=== PATIENT | female | born 1945 | race Caucasian/White ===

== ENCOUNTER 2016-08-26 03:41 | Inpatient (IN) | payer MEDICARE, OTHER ==
[2016-08-26 04:21] LABS: BASOPHIL 0.3 % (0-2); EOSINOPHIL 2.2 % (0-7); HCT 41.5 % (37.0-47.0); HGB 13.8 g/dl (12.5-16.0); MCH 32.2 pg (25.0-31.0); MCHC 33.3 g/dL (32.0-36.0); MONOCYTE 7.4 % (0-12); MPV 10.5 fL (6.0-9.5); NEUTROPHIL 52.1 % (41-80); PLT 269 K/uL (150-400); RBC 4.28 M/uL (4.20-5.40); RDW 13.3 % (11.5-14.0); WBC 11.6 K/uL (4.0-10.5)
[2016-08-26 04:31] LABS: INR 0.99 (0.9-1.2); PROTHROMBIN TIME 12.7 SECONDS (11.7-14.0); PTT 25.4 SECONDS (23.2-31.4)
[2016-08-26 04:41] LABS: CREATININE 0.9 mg/dL (0.5-1.0); POTASSIUM 4.7 mmol/L (3.5-5.1)
[2016-08-26 17:10] LABS: HCT 40.5 % (37.0-47.0); HGB 13.4 g/dl (12.5-16.0); MCHC 33.1 g/dL (32.0-36.0); MCV 96.7 fL (78.0-100.0); MPV 10.4 fL (6.0-9.5); RBC 4.19 M/uL (4.20-5.40); RDW 13.4 % (11.5-14.0); WBC 11.3 K/uL (4.0-10.5)
[2016-08-26 17:20] LABS: INR 1.06 (0.9-1.2); PROTHROMBIN TIME 13.4 SECONDS (11.7-14.0); PTT 26.9 SECONDS (23.2-31.4)
[2016-08-26 17:27] LABS: ALBUMIN 3.6 g/dL (3.4-4.8); BILIRUBIN - TOTAL 0.4 mg/dL (0.1-1.0); CREATININE 0.8 mg/dL (0.5-1.0); GLOBULIN (CALCULATION) 3.1 g/dL (2.2-4.2); TOTAL PROTEIN 6.7 g/dL (6.4-8.3)
[2016-08-27 00:25] LABS: BILIRUBIN NEGATIVE (NEGATIVE); BLOOD 2+ Ery/uL (NEGATIVE); CLARITY HAZY (CLEAR); COLOR YELLOW (YELLOW); GLUCOSE (U) 3+ mg/dL (NORMAL); KETONE (U) NEGATIVE (NEGATIVE); LEUKOCYTES 1+ Leu/uL (NEGATIVE); NITRITE POSITIVE (NEGATIVE); PROTEIN TRACE (LOW) mg/dL (NEGATIVE); SPECIFIC GRAVITY 1.025 (1.001-1.030); UROBILINOGEN 0.2 mg/dL (0.2-1.0)
[2016-08-27 04:36] LABS: HCT 40.1 % (37.0-47.0); HGB 13.4 g/dl (12.5-16.0); MCH 32.6 pg (25.0-31.0); MCHC 33.4 g/dL (32.0-36.0); MCV 97.6 fL (78.0-100.0); MPV 10.5 fL (6.0-9.5); RBC 4.11 M/uL (4.20-5.40); RDW 13.6 % (11.5-14.0); WBC 11.7 K/uL (4.0-10.5)
[2016-08-27 04:52] LABS: ALBUMIN 3.9 g/dL (3.4-4.8); BILIRUBIN - TOTAL 0.6 mg/dL (0.1-1.0); CREATININE 0.8 mg/dL (0.5-1.0); GLOBULIN (CALCULATION) 2.8 g/dL (2.2-4.2); POTASSIUM 4.9 mmol/L (3.5-5.1); TOTAL PROTEIN 6.7 g/dL (6.4-8.3)
[2016-08-28 04:40] LABS: HCT 39.6 % (37.0-47.0); MCH 32.4 pg (25.0-31.0); MCHC 32.8 g/dL (32.0-36.0); MCV 98.8 fL (78.0-100.0); MPV 10.2 fL (6.0-9.5); RBC 4.01 M/uL (4.20-5.40); RDW 13.8 % (11.5-14.0)
[2016-08-28 05:00] LABS: CREATININE 0.7 mg/dL (0.5-1.0); POTASSIUM 4.6 mmol/L (3.5-5.1)
[2016-08-29 04:50] LABS: HCT 33.9 % (37.0-47.0); HGB 10.9 g/dl (12.5-16.0); MCH 31.9 pg (25.0-31.0); MCHC 32.2 g/dL (32.0-36.0); MCV 99.1 fL (78.0-100.0); MPV 9.7 fL (6.0-9.5); RBC 3.42 M/uL (4.20-5.40); RDW 13.6 % (11.5-14.0); WBC 14.2 K/uL (4.0-10.5)
[2016-08-29 05:13] LABS: CREATININE 0.8 mg/dL (0.5-1.0); POTASSIUM 4.6 mmol/L (3.5-5.1)
[2016-08-30 05:43] LABS: HCT 28.7 % (37.0-47.0); HGB 9.3 g/dl (12.5-16.0); MCH 31.8 pg (25.0-31.0); MCHC 32.4 g/dL (32.0-36.0); MCV 98.3 fL (78.0-100.0); MPV 10.9 fL (6.0-9.5); RBC 2.92 M/uL (4.20-5.40); RDW 13.4 % (11.5-14.0); WBC 13.7 K/uL (4.0-10.5)
== END 2016-08-30 14:16 | DRG 481 ==
LOC: FER 03:41 → FMS 16:17
PROVIDERS: Emergency Medicine Emergency Medical Services; Internal Medicine; Orthopaedic Surgery; ADMIT Specialist
PROC: 0QS704Z Reposition Left Upper Femur with Internal Fixation Device, Open Approach (ICD-10-PCS; principal; 2016-08-27)
DX: S72.142A Displaced intertrochanteric fracture of left femur, initial encounter for closed fracture (principal); Z68.41 Body mass index [BMI] 40.0-44.9, adult; F03.90 Unspecified dementia, unspecified severity, without behavioral disturbance, psychotic disturbance, mood disturbance, and anxiety; E11.65 Type 2 diabetes mellitus with hyperglycemia; Z91.81 History of falling; W01.0XXA Fall on same level from slipping, tripping and stumbling without subsequent striking against object, initial encounter; Y93.89 Activity, other specified; Y92.122 Bedroom in nursing home as the place of occurrence of the external cause; E66.01 Morbid (severe) obesity due to excess calories; F31.9 Bipolar disorder, unspecified; E03.9 Hypothyroidism, unspecified; I25.10 Atherosclerotic heart disease of native coronary artery without angina pectoris; E78.5 Hyperlipidemia, unspecified; G40.909 Epilepsy, unspecified, not intractable, without status epilepticus; Z88.0 Allergy status to penicillin; Z79.82 Long term (current) use of aspirin; R09.02 Hypoxemia; I10 Essential (primary) hypertension; Z79.01 Long term (current) use of anticoagulants; K21.9 Gastro-esophageal reflux disease without esophagitis; G47.33 Obstructive sleep apnea (adult) (pediatric)
CPT/HCPCS: 36415; 36600; 70450; 71010; 72125; 72128; 72131; 72170; 72192; 73501; 73552; 76000; 80048; 80053; 81003; 82803; 82962; 85025; 85610; 85730; 86850; 86900; 86901; 87076; 87088; 87186; 93005; 94010; 94667; 94668; 94760; 94762; 97163; 97167; 97530; 97530-GP; 97535; C1713; J1170; J1815; J1956; J2270; J2405; J2704; J3010

== ENCOUNTER 2021-02-01 11:46 | Inpatient (IN) | payer MEDICARE, OTHER ==
[~2021-02-01] VITALS: Ht 160 cm; Wt 108.0 kg
[~2021-02-01 11:46] MED LIST: AQUAPHOR396 GM TOP; BAYER CHEWABLE81 MG PO; BAZA PROTECT CR57 GM TOP; CEFDINIR300 MG PO; DEPAKOTE250 MG PO; DOCUSATE S50 MG/5 ML PO; GLUCAGEN1 MG SC; GLUTOSE PO; ISOSORBIDE MONO30 MG PO; JANUVIA100 MG PO; LACTINEX1 EACH PO; LEVAQUIN500 MG PO; LEVEMIR FL100 UNIT/1 SC; LIPITOR20 MG PO; LOVAZA1 GM PO; MELATONIN3 MG PO; METOPROLOL SUCC25 MG PO; METRONIDAZOLE500 MG PO; MILK OF MA400 MG/5 M PO; MIRALAX17 GM PO; NEURONTIN100 MG PO; NORCO 5-325 TA1 EACH PO; NOVOLOG FL100 UNIT/1 SC; SYNTHROID150 MC1 PO; TRAZODONE 50MG50 MG PO; VENLAFAXINE HC150 MG PO; WELLBUTRIN XL300 MG PO
[2021-02-01 12:32] LABS: BASOPHIL 0.5 % (0-2); EOSINOPHIL 0.8 % (0-7); HCT 48.7 % (37.0-47.0); HGB 14.4 g/dl (12.5-16.0); LYMPHOCYTE 33.7 % (15-48); MCH 31.4 pg (25.0-31.0); MCHC 29.6 g/dL (32.0-36.0); MCV 106.3 fL (78.0-100.0); MONOCYTE 9.5 % (0-12); MPV 11.6 fL (6.0-9.5); NEUTROPHIL 54.4 % (41-80); NRBC 0; PLT 198 K/uL (150-400); RBC 4.58 M/uL (4.20-5.40); RDW 13.6 % (11.5-14.0)
[2021-02-01 12:33] LABS: BILIRUBIN 1+ mg/dL (NEGATIVE); BLOOD 3+ Ery/uL (NEGATIVE); CLARITY CLOUDY (CLEAR); COLOR YELLOW (YELLOW); GLUCOSE (U) NORMAL (NORMAL); LEUKOCYTES 2+ Leu/uL (NEGATIVE); NITRITE POSITIVE (NEGATIVE); PROTEIN 1+ mg/dL (NEGATIVE); SPECIFIC GRAVITY >=1.030 (1.001-1.030); pH 5.5 (5.0-9.0)
[2021-02-01 12:44] LABS: BACTERIA 3+; URINARY WBC 20-50
[2021-02-01 12:45] LABS: WBC 17.1 K/uL (4.0-10.5)
[2021-02-01 13:21] LABS: LACTIC ACID 1.8 mmol/L (0.4-1.9)
[2021-02-01 13:25] LABS: ALBUMIN 2.8 g/dL (3.4-5.0); BILIRUBIN - TOTAL 0.6 mg/dL (0.2-1.0); BUN/CREAT RATIO (CALC) 37.5 RATIO; CREATININE 1.12 mg/dL (0.51-0.95); GLOBULIN (CALCULATION) 4.6 g/dL; POTASSIUM 4.5 mmol/L (3.5-5.1); TOTAL PROTEIN 7.4 g/dL (6.4-8.2)
[2021-02-01] MEDS ORDERED: NEURONTIN300 MG PO (18:19)
[2021-02-01] MEDS ORDERED: NORCO 5-325 TA1 EACH PO (18:21)
[2021-02-01] MEDS ORDERED: ATIVAN0.5 MG PO (18:40)
[2021-02-01] MEDS ORDERED: DEPAKOTE125 MG PO (18:43)
[2021-02-01] MEDS ORDERED: DEPAKOTE SPRIN125 M2 PO (18:46)
[2021-02-01] MEDS ORDERED: COLACE100 MG PO (18:46)
[2021-02-01] MEDS ORDERED: LANTUS **100 UNITS/ SC (18:48)
[2021-02-01] MEDS ORDERED: SYNTHROID100 MCG PO (18:50)
[2021-02-01] MEDS ORDERED: NUEDEXTA 20-101 EACH PO (18:52)
[2021-02-02 06:11] LABS: BASOPHIL 0.7 % (0-2); EOSINOPHIL 1.5 % (0-7); HCT 42.1 % (37.0-47.0); HGB 12.7 g/dl (12.5-16.0); LYMPHOCYTE 29.4 % (15-48); MCH 32.2 pg (25.0-31.0); MCHC 30.2 g/dL (32.0-36.0); MCV 106.9 fL (78.0-100.0); MONOCYTE 8.5 % (0-12); MPV 11.7 fL (6.0-9.5); NEUTROPHIL 58.7 % (41-80); NRBC 0; PLT 171 K/uL (150-400); RBC 3.94 M/uL (4.20-5.40); RDW 13.4 % (11.5-14.0); WBC 13.4 K/uL (4.0-10.5)
[2021-02-02 06:31] LABS: ALBUMIN 2.4 g/dL (3.4-5.0); BILIRUBIN - TOTAL 0.7 mg/dL (0.2-1.0); BUN/CREAT RATIO (CALC) 37.9 RATIO; CREATININE 0.95 mg/dL (0.51-0.95); MAGNESIUM 2.4 mg/dL (1.8-2.4); PHOSPHORUS 1.7 mg/dL (2.6-4.7); POTASSIUM 3.8 mmol/L (3.5-5.1); TOTAL PROTEIN 6.4 g/dL (6.4-8.2)
--- NOTE | 2021-02-02 13:08 | NUR ---
02/02/21 [facility] will accept patient back per [employer]. A new COVID test will be required after 72 hours of admission. jessica Yonathan, guardian, is agreement with return to [facility]. Ms. Cardona was provided with the telephone # to the [facility] r/t concerns of privacy.
[2021-02-03 05:51] LABS: BASOPHIL 0.4 % (0-2); HCT 40.5 % (37.0-47.0); HGB 12.3 g/dl (12.5-16.0); MCH 31.9 pg (25.0-31.0); MCHC 30.4 g/dL (32.0-36.0); MCV 104.9 fL (78.0-100.0); MONOCYTE 7.2 % (0-12); MPV 11.7 fL (6.0-9.5); NEUTROPHIL 54.3 % (41-80); NRBC 0; PLT 159 K/uL (150-400); RBC 3.86 M/uL (4.20-5.40); RDW 13.1 % (11.5-14.0); WBC 13.4 K/uL (4.0-10.5)
[2021-02-03 06:28] LABS: BUN/CREAT RATIO (CALC) 23.5 RATIO; CREATININE 0.85 mg/dL (0.51-0.95); MAGNESIUM 2.1 mg/dL (1.8-2.4); PHOSPHORUS 2.1 mg/dL (2.6-4.7); POTASSIUM 3.7 mmol/L (3.5-5.1)
[2021-02-04 06:16] LABS: BUN/CREAT RATIO (CALC) 17.3 RATIO; CREATININE 0.81 mg/dL (0.51-0.95); PHOSPHORUS 2.2 mg/dL (2.6-4.7)
[2021-02-04 06:20] LABS: BASOPHIL 0.6 % (0-2); EOSINOPHIL 4.9 % (0-7); HCT 40.7 % (37.0-47.0); HGB 12.6 g/dl (12.5-16.0); LYMPHOCYTE 40.6 % (15-48); MCH 32.1 pg (25.0-31.0); MCV 103.6 fL (78.0-100.0); MONOCYTE 7.2 % (0-12); MPV 12.1 fL (6.0-9.5); NEUTROPHIL 45.1 % (41-80); NRBC 0; PLT 176 K/uL (150-400); RBC 3.93 M/uL (4.20-5.40)
--- NOTE | 2021-02-04 15:44 | NUR ---
02/04/21 Dr. Patel requested a report re: patient's baseline. Kerry Barnes, reported: patient is total care, she yells, sits with her eyes closes, and feeds herself at times. This information was relayed to Dr. Patel.
--- NOTE | 2021-02-04 16:53 | NUR ---
WOUND CONSULT DONE AT 1545. PATIENT HAS 3 OPEN AREAS TO COCCYX. AREAS MEASURE 0.5X 0.5 X 0.1, 0.3 X0.4 X 0.1, AND 0.4 X 0.4 X 0.1. PATIENT IS INCOMTINENT OF B AND B. AREAS APPEAR TO BE CAUSED BY MOISTURE. MASD AREA'S HAVE NO DRAINAGE AND NO ODOR. PATIENT DOES NOT RESPOND WHILE CLEANSING AREA, TO ANY PAIN. RECOMMENT SILVASORB GEL BID, KEEP SKIN CLEAN AND DRY, AND TO TURN AND REPOSITION PT EVERY 2 HOURS. WILL DISCUSS RECOMMENDATIONS WITH DR. ESQUEDA.
[2021-02-05 06:20] LABS: BASOPHIL 0.4 % (0-2); EOSINOPHIL 2.4 % (0-7); HCT 37.9 % (37.0-47.0); HGB 11.8 g/dl (12.5-16.0); LYMPHOCYTE 40.2 % (15-48); MCHC 31.1 g/dL (32.0-36.0); MCV 102.7 fL (78.0-100.0); MONOCYTE 8.8 % (0-12); MPV 11.6 fL (6.0-9.5); NEUTROPHIL 46.2 % (41-80); NRBC 0; PLT 176 K/uL (150-400); RBC 3.69 M/uL (4.20-5.40)
[2021-02-05 06:50] LABS: BUN/CREAT RATIO (CALC) 14.3 RATIO; CREATININE 0.77 mg/dL (0.51-0.95); PHOSPHORUS 2.9 mg/dL (2.6-4.7); POTASSIUM 4.2 mmol/L (3.5-5.1)
[2021-02-05 12:11] LABS: CALCIUM, SERUM 11.2 mg/dL (8.7-10.3); PTH, INTACT 77 pg/mL (15-65)
[2021-02-06 06:22] LABS: BASOPHIL 0.5 % (0-2); EOSINOPHIL 2.4 % (0-7); HCT 35.9 % (37.0-47.0); HGB 11.2 g/dl (12.5-16.0); LYMPHOCYTE 42.1 % (15-48); MCH 31.8 pg (25.0-31.0); MCHC 31.2 g/dL (32.0-36.0); MONOCYTE 9.6 % (0-12); MPV 11.5 fL (6.0-9.5); NRBC 0; PLT 163 K/uL (150-400); RBC 3.52 M/uL (4.20-5.40); RDW 13.2 % (11.5-14.0)
[2021-02-06 07:09] LABS: BUN/CREAT RATIO (CALC) 14.3 RATIO; CREATININE 0.77 mg/dL (0.51-0.95); MAGNESIUM 1.8 mg/dL (1.8-2.4); PHOSPHORUS 2.5 mg/dL (2.6-4.7); POTASSIUM 4.1 mmol/L (3.5-5.1)
[2021-02-06 07:52] LABS: TOTAL CELL COUNT 100
[2021-02-06 07:56] LABS: BLAST 1; EOSINOPHIL(M) 4 % (0-7); LYMPHOCYTE(M) 38 % (15-48); MONOCYTE(M) 5 % (0-12); NEUTROPHILS(M) 51 % (41-80); PROMYELOCYTE 1
[2021-02-06 07:57] LABS: PLATELET ESTIMATE NORMAL; PLATELET MORPHOLOGY NORMAL
[2021-02-06] MEDS ORDERED: VITAMIN D32400 UNIT/ PO (10:22)
--- NOTE | 2021-02-06 16:34 | NUR ---
PATIENT HAS BEEN GIVEN MIRALAX, DULCOLAX SUPP AND WHEN GIVEN NO IMPACTION FELT, INFORMED ORDERED LACTULOSE, CALL TO [facility] AND SPOKE WITH CAREGIVER THERE IF [facility] WAS NEGATIVE FOR IMPACTION PATIENT NOT EATING MUCH WOULD THEY TAKE HER BACK AND WAS INFORMED THAT PER ANNELIESE BERGER RN THAT REGARDLESS OF WHAT THE KUB SAYS SHE HAS TO HAVE A BM BEFORE SHE CAN BE SENT BACK.
== END 2021-02-06 19:30 | DRG 871 ==
LOC: FER 11:46 → FMS 14:58
PROVIDERS: Emergency Medicine; Internal Medicine; Nurse Practitioner; ADMIT Internal Medicine
DX: A41.51 Sepsis due to Escherichia coli [E. coli] (principal); G93.41 Metabolic encephalopathy; N17.9 Acute kidney failure, unspecified; N30.01 Acute cystitis with hematuria; E87.0 Hyperosmolality and hypernatremia; Z20.822 Contact with and (suspected) exposure to COVID-19; R65.20 Severe sepsis without septic shock; E11.9 Type 2 diabetes mellitus without complications; L89.152 Pressure ulcer of sacral region, stage 2; L89.626 Pressure-induced deep tissue damage of left heel; E86.0 Dehydration; E21.0 Primary hyperparathyroidism; F03.90 Unspecified dementia, unspecified severity, without behavioral disturbance, psychotic disturbance, mood disturbance, and anxiety; E66.01 Morbid (severe) obesity due to excess calories; E11.51 Type 2 diabetes mellitus with diabetic peripheral angiopathy without gangrene; G40.909 Epilepsy, unspecified, not intractable, without status epilepticus; F20.9 Schizophrenia, unspecified; I25.10 Atherosclerotic heart disease of native coronary artery without angina pectoris; I10 Essential (primary) hypertension; F32.9 Major depressive disorder, single episode, unspecified; Z90.49 Acquired absence of other specified parts of digestive tract; Z90.710 Acquired absence of both cervix and uterus; Z88.0 Allergy status to penicillin; Z90.89 Acquired absence of other organs; Z91.81 History of falling; Z79.4 Long term (current) use of insulin; Z79.82 Long term (current) use of aspirin; Z79.890 Hormone replacement therapy; Z79.899 Other long term (current) drug therapy
CPT/HCPCS: 36415; 36600; 71045; 80048; 80053; 81001; 82306; 82310; 82803; 82962; 83605; 83735; 83880; 83970; 84100; 84145; 84439; 84443; 85025; 86140; 87040; 87076; 87088; 87186; 94760; 94762; C9113; J0696; J1650; J3480; J7040; J7070; U0002

== ENCOUNTER 2021-02-08 13:15 | Inpatient (IN) | payer MEDICARE, OTHER ==
[~2021-02-08] VITALS: Ht 160 cm; Wt 115.2 kg
[~2021-02-08 13:15] MED LIST changes: +ATIVAN0.5 MG PO; +COLACE100 MG PO; +DEPAKOTE SPRIN125 M2 PO; +DEPAKOTE125 MG PO; +LANTUS **100 UNITS/ SC; +NEURONTIN300 MG PO; +NUEDEXTA 20-101 EACH PO; +SYNTHROID100 MCG PO; +VITAMIN D32400 UNIT/ PO
[2021-02-08 15:42] LABS: BASOPHIL 0.5 % (0-2); EOSINOPHIL 0.6 % (0-7); HCT 40.9 % (37.0-47.0); HGB 12.7 g/dl (12.5-16.0); LYMPHOCYTE 29.1 % (15-48); MCH 31.8 pg (25.0-31.0); MCHC 31.1 g/dL (32.0-36.0); MCV 102.3 fL (78.0-100.0); MONOCYTE 7.9 % (0-12); MPV 12.9 fL (6.0-9.5); NEUTROPHIL 59.9 % (41-80); NRBC 0; PLT 214 K/uL (150-400); RDW 13.6 % (11.5-14.0)
[2021-02-08 15:54] LABS: BILIRUBIN 1+ mg/dL (NEGATIVE); BLOOD 3+ Ery/uL (NEGATIVE); CLARITY TURBID (CLEAR); COLOR YELLOW (YELLOW); GLUCOSE (U) NORMAL (NORMAL); LEUKOCYTES 1+ Leu/uL (NEGATIVE); NITRITE NEGATIVE (NEGATIVE); PROTEIN 2+ mg/dL (NEGATIVE); SPECIFIC GRAVITY >=1.030 (1.001-1.030); pH 5.5 (5.0-9.0)
[2021-02-08 15:57] LABS: ALBUMIN 2.4 g/dL (3.4-5.0); BILIRUBIN - TOTAL 0.5 mg/dL (0.2-1.0); BUN/CREAT RATIO (CALC) 15.4 RATIO; CREATININE 0.78 mg/dL (0.51-0.95); GLOBULIN (CALCULATION) 4.7 g/dL; POTASSIUM 4.1 mmol/L (3.5-5.1); TOTAL PROTEIN 7.1 g/dL (6.4-8.2)
[2021-02-08 16:01] LABS: PRO-BNP 399 pg/mL (<125)
[2021-02-08 16:03] LABS: URINARY WBC TNTC
[2021-02-08 16:04] LABS: BACTERIA 2+
[2021-02-08 16:32] LABS: CORONAVIRUS 2019 SARS-COV-2 NEGATIVE (NEGATIVE); INFLUENZA A NAA NEGATIVE (NEGATIVE)
[2021-02-08 16:33] LABS: LACTIC ACID 1.6 mmol/L (0.4-1.9)
[2021-02-09 07:24] LABS: BASOPHIL 0.8 % (0-2); EOSINOPHIL 0.8 % (0-7); HGB 11.7 g/dl (12.5-16.0); LYMPHOCYTE 26.4 % (15-48); MCHC 30.8 g/dL (32.0-36.0); MCV 103.8 fL (78.0-100.0); MONOCYTE 7.4 % (0-12); NEUTROPHIL 62.1 % (41-80); NRBC 0; PLT 229 K/uL (150-400); RBC 3.66 M/uL (4.20-5.40); RDW 13.4 % (11.5-14.0)
[2021-02-09 07:59] LABS: ALBUMIN 2.2 g/dL (3.4-5.0); BILIRUBIN - TOTAL 0.4 mg/dL (0.2-1.0); BUN/CREAT RATIO (CALC) 15.6 RATIO; C-REACTIVE PROTEIN 5.3 mg/dL (<=0.90); CREATININE 0.64 mg/dL (0.51-0.95); GLOBULIN (CALCULATION) 3.9 g/dL; PHOSPHORUS 2.3 mg/dL (2.6-4.7); POTASSIUM 4.2 mmol/L (3.5-5.1); TOTAL PROTEIN 6.1 g/dL (6.4-8.2)
--- NOTE | 2021-02-09 16:48 | NUR ---
02/09/21 Sharmin Shipley reports that [facility] will accept patient back.
[2021-02-10 11:11] LABS: CALCIUM, SERUM 10.8 mg/dL (8.7-10.3); PTH, INTACT 65 pg/mL (15-65)
[2021-02-10 12:22] LABS: BUN/CREAT RATIO (CALC) 16.7 RATIO; CREATININE 0.54 mg/dL (0.51-0.95); POTASSIUM 3.9 mmol/L (3.5-5.1)
[2021-02-10 16:29] LABS: BASOPHIL 0.8 % (0-2); EOSINOPHIL 2.1 % (0-7); HCT 35.3 % (37.0-47.0); HGB 11.1 g/dl (12.5-16.0); LYMPHOCYTE 30.5 % (15-48); MCH 31.9 pg (25.0-31.0); MCHC 31.4 g/dL (32.0-36.0); MCV 101.4 fL (78.0-100.0); MONOCYTE 7.9 % (0-12); NEUTROPHIL 55.8 % (41-80); NRBC 0; PLT 248 K/uL (150-400); RBC 3.48 M/uL (4.20-5.40); RDW 13.4 % (11.5-14.0); WBC 10.3 K/uL (4.0-10.5)
[2021-02-11 03:35] LABS: BASOPHIL 0.6 % (0-2); EOSINOPHIL 3.1 % (0-7); HCT 34.2 % (37.0-47.0); HGB 11.1 g/dl (12.5-16.0); LYMPHOCYTE 27.1 % (15-48); MCH 32.4 pg (25.0-31.0); MCHC 32.5 g/dL (32.0-36.0); MCV 99.7 fL (78.0-100.0); MONOCYTE 9.1 % (0-12); MPV 10.9 fL (6.0-9.5); NEUTROPHIL 57.2 % (41-80); NRBC 0; PLT 268 K/uL (150-400); RBC 3.43 M/uL (4.20-5.40); RDW 13.4 % (11.5-14.0); WBC 10.6 K/uL (4.0-10.5)
[2021-02-11 03:52] LABS: BUN/CREAT RATIO (CALC) 13.5 RATIO; CREATININE 0.52 mg/dL (0.51-0.95); POTASSIUM 3.2 mmol/L (3.5-5.1)
--- NOTE | 2021-02-11 14:09 | NUR ---
02/11/21 A new negative COVID test will be required prior to admission to [facility]. Dr. Jaylen bryant.
[2021-02-12 10:21] LABS: HCT 34.1 % (37.0-47.0); HGB 10.8 g/dl (12.5-16.0); MCHC 31.7 g/dL (32.0-36.0); MCV 101.2 fL (78.0-100.0); MPV 10.6 fL (6.0-9.5); RBC 3.37 M/uL (4.20-5.40); RDW 13.7 % (11.5-14.0); WBC 9.4 K/uL (4.0-10.5)
[2021-02-12 10:37] LABS: BUN/CREAT RATIO (CALC) 11.9 RATIO; CREATININE 0.59 mg/dL (0.51-0.95); POTASSIUM 3.9 mmol/L (3.5-5.1)
[2021-02-12] MEDS ORDERED: ATIVAN0.5 MG PO (15:14)
[2021-02-12] MEDS ORDERED: MORPHINE S100 MG/5 M SL (15:14)
--- NOTE | 2021-02-12 15:26 | NUR ---
MET WITH DAUGHTER AND DR. THORPE. DR. THORPE EXPLAINED DNR AND COMFORT MEASURES TO DAUGHTER. I ADVISED DAUGHTER THAT MARICARMEN, ASSOCIATE PROFESSOR OF GEOGRAPHY, WITH [facility] HAD ADVISED THAT THEY WOULD DISCUSS WHAT THE FAMILY WANTS WITH THE DAUGHTER WHEN SHE COMES BACK TO [facility]. PER CLAUDINE FORBES, THAT PT WILL RETURN TO [facility] THIS DATE. ADVISED MARICARMEN AT [facility] THAT PT WILL RETURN THIS DATE. MARICARMEN ADVISED [facility] THE FAX NUMBER FOR REGULAR HOURS IS [id number] AND [facility]HOU[facility] IS [phone].
== END 2021-02-12 18:40 | DRG 871 ==
LOC: FER 13:15 → FMS 20:15
PROVIDERS: Emergency Medicine Emergency Medical Services; Internal Medicine; Nurse Practitioner; ADMIT Allergy & Immunology Allergy
DX: A41.9 Sepsis, unspecified organism (principal); G93.41 Metabolic encephalopathy; N30.01 Acute cystitis with hematuria; E87.0 Hyperosmolality and hypernatremia; Z68.42 Body mass index [BMI] 45.0-49.9, adult; Z20.822 Contact with and (suspected) exposure to COVID-19; R65.20 Severe sepsis without septic shock; E11.9 Type 2 diabetes mellitus without complications; F25.1 Schizoaffective disorder, depressive type; Z51.5 Encounter for palliative care; I10 Essential (primary) hypertension; L89.152 Pressure ulcer of sacral region, stage 2; E66.01 Morbid (severe) obesity due to excess calories; E21.0 Primary hyperparathyroidism; E03.9 Hypothyroidism, unspecified; E86.0 Dehydration; E11.51 Type 2 diabetes mellitus with diabetic peripheral angiopathy without gangrene; F03.90 Unspecified dementia, unspecified severity, without behavioral disturbance, psychotic disturbance, mood disturbance, and anxiety; I25.10 Atherosclerotic heart disease of native coronary artery without angina pectoris; G40.909 Epilepsy, unspecified, not intractable, without status epilepticus; Z90.710 Acquired absence of both cervix and uterus; Z90.49 Acquired absence of other specified parts of digestive tract; Z90.89 Acquired absence of other organs; Z98.890 Other specified postprocedural states; Z88.0 Allergy status to penicillin
CPT/HCPCS: 36415; 36600; 70450; 71045; 71250; 80048; 80053; 80202; 81001; 82310; 82803; 82962; 83605; 83615; 83735; 83880; 83970; 84100; 84145; 84439; 84443; 84484; 85025; 86140; 87040; 87076; 87088; 93005; 94640; 96365; C9113; J0692; J1650; J2270; J3370; J3480; J7030; J7040; J7050; J7070; U0002

== ENCOUNTER 2021-02-18 18:54 | Day surgery (SDCO) | payer MEDICARE, OTHER ==
[~2021-02-18] VITALS: Ht 160 cm; Wt 120.0 kg
[~2021-02-18 18:54] MED LIST changes: +MORPHINE S100 MG/5 M SL
[2021-02-18 19:31] LABS: BASOPHIL 0.2 % (0-2); EOSINOPHIL 0.8 % (0-7); HCT 35.7 % (37.0-47.0); LYMPHOCYTE 25.7 % (15-48); MCH 32.2 pg (25.0-31.0); MCHC 30.8 g/dL (32.0-36.0); MCV 104.4 fL (78.0-100.0); MPV 11.6 fL (6.0-9.5); NEUTROPHIL 66.7 % (41-80); NRBC 0; PLT 211 K/uL (150-400); RBC 3.42 M/uL (4.20-5.40); RDW 14.7 % (11.5-14.0); WBC 17.1 K/uL (4.0-10.5)
[2021-02-18 19:53] LABS: ALBUMIN 1.8 g/dL (3.4-5.0); BILIRUBIN - TOTAL 0.7 mg/dL (0.2-1.0); BUN/CREAT RATIO (CALC) 18.3 RATIO; CREATININE 0.82 mg/dL (0.51-0.95); GLOBULIN (CALCULATION) 4.7 g/dL; POTASSIUM 4.2 mmol/L (3.5-5.1); TOTAL PROTEIN 6.5 g/dL (6.4-8.2)
[2021-02-18 19:59] LABS: LACTIC ACID 1.5 mmol/L (0.4-1.9)
[2021-02-18 20:04] LABS: BILIRUBIN 1+ mg/dL (NEGATIVE); BLOOD 2+ Ery/uL (NEGATIVE); CLARITY CLEAR (CLEAR); COLOR YELLOW (YELLOW); GLUCOSE (U) NORMAL (NORMAL); LEUKOCYTES 2+ Leu/uL (NEGATIVE); NITRITE NEGATIVE (NEGATIVE); PROTEIN 2+ mg/dL (NEGATIVE); SPECIFIC GRAVITY >=1.030 (1.001-1.030)
[2021-02-18 20:16] LABS: YEAST PRESENT
[2021-02-18 20:17] LABS: BACTERIA 2+
[2021-02-18 20:18] LABS: URINARY WBC TNTC
[2021-02-18 20:21] LABS: INR 1.29 (0.9-1.2); PROTHROMBIN TIME 15.4 SECONDS (11.8-13.4)
[2021-02-18 20:22] LABS: CALCIUM OXALATE CRYSTALS TRACE
[2021-02-18 20:22] LABS: PTT 29.4 SECONDS (24.4-34.7)
[2021-02-18 20:26] LABS: SULFONAMIDES CRYSTALS TRACE
[2021-02-18 20:27] LABS: GRANULAR CASTS TRACE
[2021-02-19 07:18] LABS: BUN/CREAT RATIO (CALC) 20.6 RATIO; CREATININE 0.68 mg/dL (0.51-0.95)
[2021-02-19 07:19] LABS: BASOPHIL 0.2 % (0-2); EOSINOPHIL 0.9 % (0-7); HCT 30.4 % (37.0-47.0); HGB 9.2 g/dl (12.5-16.0); LYMPHOCYTE 18.9 % (15-48); MCH 32.7 pg (25.0-31.0); MCHC 30.3 g/dL (32.0-36.0); MCV 108.2 fL (78.0-100.0); MONOCYTE 5.7 % (0-12); MPV 10.8 fL (6.0-9.5); NEUTROPHIL 73.7 % (41-80); NRBC 0; PLT 144 K/uL (150-400); RBC 2.81 M/uL (4.20-5.40); RDW 14.5 % (11.5-14.0); WBC 12.2 K/uL (4.0-10.5)
== END 2021-02-19 14:40 ==
LOC: FER 18:54 → FMS 21:44
PROVIDERS: Emergency Medicine; Nurse Practitioner; ADMIT Internal Medicine
DX: A41.9 Sepsis, unspecified organism (principal); J18.9 Pneumonia, unspecified organism; N39.0 Urinary tract infection, site not specified; F03.90 Unspecified dementia, unspecified severity, without behavioral disturbance, psychotic disturbance, mood disturbance, and anxiety; I10 Essential (primary) hypertension; E11.51 Type 2 diabetes mellitus with diabetic peripheral angiopathy without gangrene; I25.10 Atherosclerotic heart disease of native coronary artery without angina pectoris; E03.9 Hypothyroidism, unspecified; F20.9 Schizophrenia, unspecified; F32.9 Major depressive disorder, single episode, unspecified; E66.01 Morbid (severe) obesity due to excess calories; G40.909 Epilepsy, unspecified, not intractable, without status epilepticus; Z68.42 Body mass index [BMI] 45.0-49.9, adult; Z88.0 Allergy status to penicillin; Z79.899 Other long term (current) drug therapy; Y95 Nosocomial condition; Z66 Do not resuscitate; Z20.822 Contact with and (suspected) exposure to COVID-19
CPT/HCPCS: 36415; 36600; 71250; 80048; 80053; 81001; 82803; 83605; 83880; 84145; 84484; 85025; 85610; 85730; 87040; 87088; 93005; G0378; J1450; J1650; J1956; J2060; J2270; J3370; J7030; J7040; U0002